=== PATIENT | male | born 1950 | race Two or more races ===

== ENCOUNTER 2016-10-25 05:40 | Day surgery (SDC) | payer OTHER ==
[~2016-10-25] VITALS: Ht 167.6 cm; Wt 72.2 kg
[2016-10-25 06:24] VITALS: Ht 167.6 cm; Wt 72.2 kg
[2016-10-25] MEDS ORDERED: LISI10TA2 PO (06:38)
[2016-10-25] MEDS ORDERED: ASPI-664 PO (06:38)
[2016-10-25] MEDS ORDERED: OMEP40CA6 PO (06:38)
[2016-10-25] MEDS ORDERED: METF500T4 PO (06:38)
[2016-10-25] MEDS ORDERED: ATOR40TA68 PO (06:38)
[2016-10-25] MEDS ORDERED: PIOG15TA21 PO (06:38)
[2016-10-25 06:58] VITALS: BP 120/62; PULSE 84; RESP 18
[2016-10-25] MEDS ORDERED: MIDAZOLAM 1 MG/ML 2 ML INJ ONE (07:33)
[2016-10-25] MEDS ORDERED: FENTAnyl 50 MCG/ML VIAL ONE (07:34)
--- NOTE | 2016-10-25 12:19 | GILP ---
DATE OF PROCEDURE: 10/25/2016 NAME OF PROCEDURES: Esophagogastroduodenoscopy and biopsy. SURGEON: Sharon Rubio MD PREOPERATIVE DIAGNOSIS: Gastroesophageal reflux disease. POSTOPERATIVE DIAGNOSES: 1. Gastroesophageal reflux disease. 2. Gastritis with erosions. 3. Gastric mucosal biopsies were taken for Helicobacter pylori test. INDICATION FOR THE PROCEDURE: Mr. Tish Purvis is a 66-year-old male patient who had ch ronic heartburn, not responding to therapy. The patient was scheduled for endoscopic examination fo r further evaluation. The procedure and possible complications were well explained to the patient, he understood and conse nted to the procedure. DESCRIPTION OF PROCEDURE: Under the influence of fentanyl and Versed, the gastroscope was carefully introduced into the esophagus and under direct vision, it was advanced to the stomach and through t he pylorus into the duodenal bulb and descending duodenum. FINDINGS: ESOPHAGUS: The patient had gastroesophageal reflux disease. STOMACH: He had gastritis with erosions. Gastric mucosal biopsies were taken for H. pylori test. DUODENUM: Normal. The patient tolerated the procedure very well and there was no complication from the procedure. At the end of the procedure, he was awake with stable vital signs and he was discharged home to the car e of his family. IMPRESSION: 1. Gastroesophageal reflux disease. 2. Gastritis with erosions. 3. Gastric mucosal biopsies were taken for Helicobacter pylori test. PLAN: 1. Omeprazole 40 mg p.o. q.a.m. 2. Zantac 300 mg p.o. at bedtime. 3. Await H. pylori test report. Dictated By: SHARON CROOKS/HUMBERTO Conf#: [id number] DID#: [id number] CC: SHARON RUBIO MD;*EndCC*
--- NOTE | 2016-10-26 08:48 | CONS ---
DATE OF ADMISSION: 10/25/2016 DATE OF CONSULTATION: TYPE OF CONSULTATION: Preoperative gastroenterology. Dear Dr. Krause, I thank you very much for this kind referral. HISTORY OF PRESENT ILLNESS: Mr. Tish Purvis is a 66-year-old male patient who has been referred to me for further evaluation of chronic heartburn associated with hiccups and a feeling of foreign body in the throat. The patient has been taking omeprazole without relief. There is no [facility] history of peptic ulcer disease. The patient has been taking baby aspirin a day. There is no hi story of gallstones. He does not have any fever, chills or jaundice. There is no history of liver disease. The patient denies any change in the bowel habit or rectal bleeding. He states he had a c olonoscopy 1-1/2 years ago and no colon neoplasm was identified. He is hypertensive. He has diabet es. There is no history of heart disease or lung problem. There is no history of kidney disease. He has got hyperlipidemia. He is status post back surgery. SOCIAL HISTORY: He is a nonsmoker. He does not abuse alcohol. FAMILY HISTORY: Negative for gastrointestinal tract neoplasm. ALLERGIES: THERE IS NO HISTORY OF SIGNIFICANT DRUG ALLERGY. MEDICATIONS: 1. Omeprazole. 2. Lisinopril. 3. Metformin. 4. Pioglitazone. 5. Atorvastatin. 6. Aspirin 81 mg. PHYSICAL EXAMINATION: VITAL SIGNS: He is 5 feet 6 inches tall, and he weighs 150 pounds. HEART: Examination of the heart reveals normal first and second heart sounds. LUNGS: Clear. ABDOMEN: Soft without any distention. Liver and spleen are not palpable. There are no masses. Th ere is no focal tenderness. Normal bowel sounds are heard. CENTRAL NERVOUS SYSTEM: Does not reveal any focal neurological deficit. IMPRESSION: 1. Chronic heartburn with feeling of foreign body in the throat. 2. The patient also complains of hiccups. 3. The patient has been taking omeprazole without relief. 4. The patient states he had a colonoscopy 1-1/2 years ago and no colon neoplasm was identified. 5. Hypertension. 6. Diabetes mellitus. 7. Hyperlipidemia. 8. Status post back surgery. 9. The patient is on baby aspirin a day. PLAN: Endoscopic for further evaluation. The procedure and possible complications are well explained to the patient. He understands and cons ents to the procedure. I thank you once again. With warmest personal regards, Dictated By: SHARON CROOKS/HUMBERTO Conf#: [id number] DID#: [id number]
== END 2016-10-25 08:20 | disposition home or self-care (01) ==
LOC: GIL 05:40
PROVIDERS: ATTEND Internal Medicine Gastroenterology
DX: K21.9 Gastro-esophageal reflux disease without esophagitis (principal); K29.60 Other gastritis without bleeding; I10 Essential (primary) hypertension; E11.9 Type 2 diabetes mellitus without complications; E78.5 Hyperlipidemia, unspecified; Z79.82 Long term (current) use of aspirin
CPT/HCPCS: 43239; 82962; 87081; J2250; J3010; Z7610